=== PATIENT | male | born 2000 | race Caucasian/White ===

== ENCOUNTER 2021-05-25 09:11 | Emergency (ER) | payer OTHER, SELFPAY ==
[2021-05-25 09:15] VITALS: BP 143/89; PULSE 82; RESP 18; TEMP 36.8; O2SAT 100; BMI 31.0
--- NOTE | 2021-05-25 09:30 | ED_ITS ---
HPI - Abdominal Pain General Chief Complaint: Recheck/Abnormal Lab/Rx Stated Complaint: Abdominal issues post surgery/leaking Time Seen by Provider: 05/25/21 09:30 Source: patient Mode of arrival: Ambulatory Limitations: no limitations History of Present Illness HPI narrative: This is a 21-year-old male comes emergency department with issues from his laparoscopic appendectomy. Patient states that he had surgery about 2 weeks ago a [place] with Dr. Jordan. Patient states some he had quite a bit of bruising around the umbilical site initially. He has had redness that has actually decreased in size but has continued to have some swelling that is been present. He has had increasing pain at the umbilical site and today while seated felt fluid on his short and looked down and had a small to moderate amount of serosanguineous fluid drained. Patient still able to express a small amount when he pushes on the area. Patient has not had any fevers. He has not had any nausea or vomiting. He has had bowel movements, he has been urinating regularly. Other than the localized discomfort his abdominal pain has improved overall. 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 He did have it evaluated last Monday and was told that the changes he saw our normal. Patient denies any other medical history, no other major surgeries. No allergies to medications. He vapes occasionally for tobacco, occasional ETOH and does not use any illicit. He has been taking Tylenol and ibuprofen with an occasional oxycodone for pain. Related Data Home Medications Medication Instructions Recorded Confirmed ibuprofen 200 mg capsule 400 mg PO Q6H PRN 05/25/21 05/25/21 Previous Rx's Medication Instructions Recorded sulfamethoxazole 800 1 tab PO BID #20 tab 05/25/21 mg-trimethoprim 160 mg tablet (Bactrim DS) Allergies Allergy/AdvReac Type Severity Reaction Status Date / Time No Known Drug Allergies Allergy Verified 05/25/21 10:17 Review of Systems Review of Systems ROS Unobtainable: All systems reviewed & are unremarkable except as noted in HPI and below Patient History Social History Smoking Status: Current every day smoker Exam Narrative Exam Narrative: GENERAL: Alert and oriented x three, male in mild distress. HEENT: Head normocephalic, atraumatic, EOMI, pupils reactive, face symmetric, moist mucous membranes NECK: Supple, full range of motion CARDIOVASCULAR: Regular rate and rhythm without murmurs, rubs or gallops. RESPIRATORY: Breath sounds equal bilaterally, no wheezes rales or rhonchi. ABDOMEN: Soft, patient is mildly distended over the abdomen just below the umbilicus. There is about a 3 cm area of erythema the 6:00 a.m. o'clock positi on from the umbilicus and just below with some slight swelling. Patient is tender over this region. Patient is able to express some serosanguineous fluid with pressure. Other than small punctate area of drainage the incision appears intact. Patient has 2 other incisions which appear clean dry and intact. Normoactive bowel sounds all 4 quadrants. No guarding or rebound, rigidity, no mass : No CVA tenderness EXTREMITIES: Normal range of motion, no clubbing or edema. Neurovascularly intact NEUROLOGICAL: Cranial nerves II through XII grossly intact. Moving all extremities SKIN: Warm, dry, no petechiae, no rashes or lesions. Initial Vital Signs Initial Vital Signs: Vital Signs Temperature 98.2 F 05/25/21 09:15 Pulse Rate 82 05/25/21 09:15 Respiratory Rate 18 05/25/21 09:15 Blood Pressure 143/89 H 05/25/21 09:15 Pulse Oximetry 100 05/25/21 09:15 Course Orders Ordered: Discontinued Medications Ketorolac Tromethamine (Ketorolac 30 Mg/Ml Vial) 15 mg IV NOW ONE Stop: 05/25/21 09:44 Last Admin: 05/25/21 10:17 Dose: 15 mg Documented by: JUNG Consultations Consultation #1: Dr. Jordan, contacted. Vital Signs Vital signs: Vital Signs - 8 hr 05/25/21 09:15 05/25/21 11:06 Temperature 98.2 F Pulse Rate 82 72 Respiratory Rate 18 14 Blood Pressure 143/89 H 129/83 Pulse Oximetry 100 99 MDM - Abdominal Pain Lab Data Result diagrams: 05/25/21 10:09 05/25/21 10:09 Labs: Lab Results 05/25/21 05/25/21 Range/Units 10:09 10:09 WBC 9.7 (4.5-11.0) X10^3/uL RBC 4.71 (4.5-5.9) X10^6/uL Hgb 13.7 (13.5-17.5) g/dL Hct 39.6 L (41-53) % MCV 84.1 (80-100) fL MCH 29.0 (26-34) PG MCHC 34.5 (30-36) % RDW 12.6 (11.6-14.8) % Plt Count 365 (150-400) X10^3/uL Neut % (Auto) 63.5 (50-75) % Lymph % (Auto) 23.2 L (25-40) % [place] % (Auto) 9.2 (3-14) % Eos % (Auto) 3.5 (2-4) % Baso % (Auto) 0.6 (0-2) % Neut # (Auto) 6200 (5257-9594) /uL Lymph # (Auto) 2300 (4239-4436) /uL [place] # (Auto) 900 (0-900) /uL Eos # (Auto) 300 (0-450) /uL Baso # (Auto) 100 (0-100) /uL Sodium 136 L (137-145) mmol/L Potassium 4.6 (3.4-5.1) mmol/L Chloride 104 (98-107) mmol/L Carbon Dioxide 24 (22-32) mmol/L BUN 19 (9-20) mg/dL Creatinine 0.85 (0.66-1.25) mg/dL Estimated GFR > 60.0 (>60) mL/min BUN/Creatinine Ratio 22.4 H (6-22) Glucose 87 (70-100) mg/dL Calcium 9.7 (8.4-10.2) mg/dL Total Bilirubin 0.4 (0.2-1.3) mg/dL AST 37 (17-59) IU/L ALT 33 (<50) IU/L Alkaline Phosphatase 96 (38-126) U/L Total Protein 7.3 (6.3-8.2) g/dL Albumin 4.0 (3.5-5.0) g/dL Globulin 3.3 (1.7-4.1) g/dL Albumin/Globulin Ratio 1.2 (1.0-2.8) Lipase 50 (23-300) U/L Imaging Data US - abdomen: Radiologist's Impression: [address] [id number] ReportSigned Patient: Rober Olvera BMR#: [id number]: [id number]:[id number]/Sex: 21 / MDate of Service: 05/25/21Loc: EDAccession Number: [id number] Procedure: US abdomen limited Ordering Provider: Naina Barroso D.O. PROCEDURE: US ABDOMEN LIMITED INDICATIONS: swelling drainage, s/p surgery at umbilicus TECHNIQUE: Real-time focused scanning was performed of the abdomen, with image do cumentation. COMPARISON: None. FINDINGS: Scanning is performed at the area of clinical concern within the region of the umbilicus. At this site, no fluid collections are seen. No abscess collection. IMPRESSION: Negative ultrasound. No abscess or fluid collection can be seen. Dictated by: Riccardo Fung M.D. on 05/25/2021 at 9:11 Approved by: Riccardo Fung M.D. on 05/25/2021 at 9:11 [facility] Narrative Medical decision making narrative: 21-year-old male with fluid leaking consistent with seroma. Patient does have a small area of cellulitis overlying but does not have any purulent fluid COVID culture was obtained. Patient's labs reassuring, his exam is reassuring. Ultrasound does not show fluid collection but patient states he expressed quite a bit prior to his ultrasound. Patient started on oral antibiotic. Encouraged to return also he needs to have follow- up with with his general surgeon for recheck. Return precautions discussed and patient feels comfortable at this. Discharge Plan Departure Patient Disposition: Home Clinical Impression: Seroma after procedure, Postoperative cellulitis of surgical wound Instructions: DI for Cellulitis -- Adult Activity Restrictions/Additional Instructions: Follow up with your general surgery Dr. Jordan for recheck. I believe you have a seroma which is a fluid collection underneath your incision site causing your symptoms. The fluid itself does not appear infected at this time but has been sent for culture. You have a small amount of cellulitis or infection over the skin at and is recommended you start an oral antibiotic today. Take antibiotics until they are completely gone. Prescription was sent to [facility] pharmacy in [place]. You may continue with Tylenol up to a 1000 mg every 8 hours and or ibuprofen up to 600 mg every 6 hours if this is inadequate for your pain relief. You may also add oxycodone as prescribed by your surgeon. Please return for fevers, rapidly worsening pain, spreading redness, swelling, persistent vomiting, black or bloody stools, passing out or other new or concerning symptoms. Prescriptions: New sulfamethoxazole-trimethoprim [Bactrim DS] 800-160 mg tablet 1 tab PO BID Qty: 20 RF: 0 No Action ibuprofen 200 mg Capsule 400 mg PO Q6H PRN (Reason: Pain (Scale Score 4-6)) RF: 0 Referrals: Yulisa Jordan MD [Non-Staff] - Stand Alone Forms: Work Release Note
--- NOTE | 2021-05-25 09:42 | DI.US.S_ITS ---
PROCEDURE: US ABDOMEN LIMITED INDICATIONS: swelling drainage, s/p surgery at umbilicus TECHNIQUE: Real-time focused scanning was performed of the abdomen, with image documentation. COMPARISON: None. FINDINGS: Scanning is performed at the area of clinical concern within the region of the umbilicus. At this site, no fluid collections are seen. No abscess collection. IMPRESSION: Negative ultrasound. No abscess or fluid collection can be seen. Dictated by: Riccardo Fung M.D. on 05/25/2021 at 9:11 Approved by: Riccardo Fung M.D. on 05/25/2021 at 9:11
[2021-05-25 10:13] LABS: Add Manual Diff / Slide Review NO; Basophils Absolute Auto 100 /uL (0-100); Basophils Percent Auto 0.6 % (0-2); Eosinophils Absolute Auto 300 /uL (0-450); Eosinophils Percent Auto 3.5 % (2-4); Hematocrit 39.6 % (41-53); Hemoglobin 13.7 g/dL (13.5-17.5); Lymphocytes Absolute Auto 2300 /uL (1100-4500); Lymphocytes Percent Auto 23.2 % (25-40); Mean Corpuscular HGB Conc 34.5 % (30-36); Mean Corpuscular Volume 84.1 fL (80-100); Monocytes Absolute Auto 900 /uL (0-900); Monocytes Percent Auto 9.2 % (3-14); Neutrophils Absolute Auto 6200 /uL (1500-7000); Neutrophils Percent Auto 63.5 % (50-75); Platelet Count 365 X10^3/uL (150-400); Red Blood Cell Count 4.71 X10^6/uL (4.5-5.9); Red Cell Distribution Width 12.6 % (11.6-14.8); White Blood Cell Count 9.7 X10^3/uL (4.5-11.0)
[2021-05-25] MEDS: KETOROLAC 30 MG/ML VIAL 15 MG IV (10:17)
[2021-05-25 10:31] LABS: Alanine Aminotransferase 33 IU/L (<50); Albumin Globulin Ratio 1.2 (1.0-2.8); Alkaline Phosphatase 96 U/L (38-126); Aspartate Aminotransferase 37 IU/L (17-59); BUN Creatinine Ratio 22.4 (6-22); Bilirubin Total 0.4 mg/dL (0.2-1.3); Blood Urea Nitrogen 19 mg/dL (9-20); Calcium 9.7 mg/dL (8.4-10.2); Carbon Dioxide 24 mmol/L (22-32); Chloride 104 mmol/L (98-107); Estimated Glomerular Filt Rate > 60.0 mL/min (>60); Globulin 3.3 g/dL (1.7-4.1); Glucose 87 mg/dL (70-100); HEMOLYSIS 50 (0-50); Lipase 50 U/L (23-300); Potassium 4.6 mmol/L (3.4-5.1); Sodium 136 mmol/L (137-145); Total Protein 7.3 g/dL (6.3-8.2)
[2021-05-25 11:06] VITALS: BP 129/83; PULSE 72; RESP 14; O2SAT 99
== END 2021-05-25 11:25 | disposition home or self-care (01) ==
PROVIDERS: Emergency Provider Emergency Medicine
DX: K91.62 Intraoperative hemorrhage and hematoma of a digestive system organ or structure complicating other procedure (principal); T81.49XA Infection following a procedure, other surgical site, initial encounter
CPT/HCPCS: 36415; 76705; 80053; 83690; 85025; 87070; 87077; 87186; 87205; 96374; 99284; J1885